=== PATIENT | male | born 1995 | race Caucasian/White ===

== ENCOUNTER 2017-08-27 07:17 | Emergency (ER) | payer BC ==
[2017-08-27 08:16] LABS: #Eosinphils 0.1 thou/uL (0.0-0.7); #Lymphocytes 1.3 thou/uL (1.20-3.40); #Monocytes 0.8 thou/uL (0.11-0.59); #Neutrophils 8.9 thou/uL (1.40-6.50); %Eosinophils 0.5 % (0.0-10.0); %Lymphocytes 11.9 % (21.0-51.0); %Monocytes 7.2 % (0.0-10.0); Hematocrit 40.9 % (42.0-52.0); Mean Platelet Volume 7.1 fL (7.4-10.4); Red Blood Cell (RBC) Count 4.78 mill/uL (4.70-6.10)
[2017-08-27] MEDS ORDERED: Ketorolac Tromethamine 30 MG/ML VIAL ONE (08:19)
[2017-08-27 08:42] LABS: ALT (SGPT) 18 U/L (8-55); AST (SGOT) 15 U/L (5-34); Alkaline Phosphatase 54 U/L (40-150); Anion Gap 14 mmol/L (10-20); BUN (Urea Nitrogen) 13 mg/dL (8.9-20.6); Bilirubin, Total 0.2 mg/dL (0.2-1.2); Calc. Creatinine Clearance 0 mL/min (70-130); Carbon Dioxide 21 mmol/L (22-29); Chloride 104 mmol/L (98-107); Estimated GFR-MDRD Greater than 90; Globulin 2.6 g/dL (2.4-3.5); Protein, Total 6.5 g/dL (6.0-8.3)
--- NOTE | 2017-08-27 09:28 | RAD ---
PA AND LATERAL CHEST XRAY: DATE: 08/27/17. HISTORY: Cough. FINDINGS: Cardiac silhouette and pulmonary vasculature are within normal limits. The lungs are clear. Osseous structures are intact. IMPRESSION: No acute cardiopulmonary process. POS: [facility]
== END 2017-08-27 09:45 | disposition home or self-care (01) ==
LOC: ERS 07:17
DX: B34.9 Viral infection, unspecified (principal); E10.9 Type 1 diabetes mellitus without complications; F41.9 Anxiety disorder, unspecified; F32.9 Major depressive disorder, single episode, unspecified; Z79.899 Other long term (current) drug therapy
CPT/HCPCS: 36415; 71020; 80053; 85025; 96361; 96374; J1885

== ENCOUNTER 2018-10-19 08:46 | Emergency (ER) | payer BC ==
--- NOTE | 2018-10-19 09:39 | RAD ---
RIGHT HAND 3 VIEWS: HISTORY: Fall. Pain. FINDINGS: Comminuted and slightly displaced fracture involving the proximal aspect of the 1st metacarpal. Asso ciated soft tissue swelling. Probable remote injury involving the distal 5th metacarpal. Limited evaluation of the base of the 3rd metacarpal. Correlate for point tenderness in this region. IMPRESSION: 1. Acute fracture involving the 1st metacarpal. 2. Indeterminate irregularity at the base of the 3rd metacarpal. Correlate for point tenderness. R emote injury to the 5th metacarpal is noted. POS: [facility]
[2018-10-19] MEDS ORDERED: Ibuprofen 600 MG TAB ONE (09:43)
== END 2018-10-19 10:11 | disposition home or self-care (01) ==
LOC: SCSER 08:46
DX: S62.231A Other displaced fracture of base of first metacarpal bone, right hand, initial encounter for closed fracture (principal); W18.11XA Fall from or off toilet without subsequent striking against object, initial encounter; Y92.002 Bathroom of unspecified non-institutional (private) residence as the place of occurrence of the external cause
CPT/HCPCS: 29125

== ENCOUNTER 2019-03-28 04:10 | Emergency (ER) | payer BC ==
[2019-03-28 05:43] LABS: #Lymphocytes 1.7 thou/uL (1.20-3.40); #Monocytes 0.3 thou/uL (0.11-0.59); #Neutrophils 4.5 thou/uL (1.40-6.50); %Basophils 0.7 % (0.0-1.0); %Eosinophils 0.4 % (0.0-10.0); %Lymphocytes 25.5 % (21.0-51.0); %Monocytes 4.4 % (0.0-10.0); Hemoglobin 13.9 g/dL (14.0-18.0); Mean Corpuscular HGB CONC 34.5 g/dL (32.0-36.0); Mean Corpuscular Hemoglobin 28.6 pg (27.0-31.0); Mean Corpuscular Volume 83.1 fL (78.0-98.0); Mean Platelet Volume 8.7 fL (7.4-10.4); Platelet Count 263 thou/uL (130-400); RBC Distribution Width 10.9 % (11.5-14.5); Red Blood Cell (RBC) Count 4.86 mill/uL (4.70-6.10); White Blood Cell (WBC) Count 6.5 thou/uL (4.8-10.8)
[2019-03-28 05:59] LABS: Bilirubin Negative (Negative); Blood, Urine Small (Negative); Clarity Clear (Clear); Glucose, Urine (Dipstick) 500 mg/dL (Negative); Leukocyte Negative (Negative); Nitrite Negative (Negative); Protein, Urine (Dipstick) Negative (Neg-Trace); Specific Gravity, Urine 1.015 (1.002-1.036); Urobilinogen 0.2 mg/dL (0.2-1.0)
[2019-03-28 06:00] LABS: Bacteria/HPF None Seen HPF (None Seen); Hyaline Casts/LPF NONE SEEN LPF (0-3 Hyaline); Squamous Epithelial None Seen HPF (0-3); WBC/HPF 0-3 HPF (0-3); Yeast-All Forms None Seen HPF (None Seen)
[2019-03-28 06:01] LABS: Medtox Reader # READER 4
[2019-03-28 06:02] LABS: Acetaminophen Less than 6.0 mcg/mL (10.0-30.0); Alcohol 53 mg/dL (Less than 10); Salicylate Less than 8.0 mg/dL (15.0-30.0)
[2019-03-28 06:02] LABS: Amphetamine Detected (NotDetected); Barbiturates Screen Not Detected (NotDetected); Benzodiazepine Screen Not Detected (NotDetected); Cocaine Metabolite Screen Detected (NotDetected); Medtox Control Line Valid? VALID (VALID); Methadone Not Detected (NotDetected); Methamphetamine Not Detected (NotDetected); Opiate Screen Not Detected (NotDetected); Oxycodone Screen Not Detected (NotDetected); Phencyclidine (PCP) Not Detected (NotDetected); THC/Cannabinoid Screen Not Detected (NotDetected); Tricyclic Screen Not Detected (NotDetected)
[2019-03-28 06:07] LABS: ALT (SGPT) 19 U/L (8-55); AST (SGOT) 17 U/L (5-34); Albumin 4.6 g/dL (3.5-5.0); Alcohol 54 mg/dL (Less than 10); Alkaline Phosphatase 74 U/L (40-150); Anion Gap 16 mmol/L (10-20); BUN (Urea Nitrogen) 10 mg/dL (8.9-20.6); Bilirubin, Total 0.3 mg/dL (0.2-1.2); CK (CPK) 216 U/L (30-200); Calc. Creatinine Clearance 0 mL/min (70-130); Calcium 9.7 mg/dL (7.8-10.44); Carbon Dioxide 23 mmol/L (22-29); Chloride 101 mmol/L (98-107); Estimated GFR-MDRD 47; Globulin 2.8 g/dL (2.4-3.5); Glucose 513 mg/dL (70-105); Potassium 4.3 mmol/L (3.5-5.1); Protein, Total 7.4 g/dL (6.0-8.3); Sodium 136 mmol/L (136-145)
[2019-03-28] MEDS ORDERED: Lorazepam 1 MG TAB ONE (06:10)
--- NOTE | 2019-03-29 09:36 | EKG ---
Test Reason : Blood Pressure : / mmHG Vent. Rate : 122 BPM Atrial Rate : 122 BPM P-R Int : 146 ms QRS Dur : 082 ms QT Int : 328 ms P-R-T Axes : 068 074 058 degrees QTc Int : 467 ms Sinus tachycardia Cannot rule out Anterior infarct , age undetermined Abnormal ECG Confirmed by SASHA HARVEY D.O. ([id number]), manuscript editor [facility] TOLEDO ([id number]) on 03/29/2019 9:36:08 AM Referred By: Confirmed By:SASHA HARVEY D.O.
== END 2019-03-28 08:15 | disposition home or self-care (01) ==
LOC: ERS 04:10
DX: T40.5X1A Poisoning by cocaine, accidental (unintentional), initial encounter (principal); F41.0 Panic disorder [episodic paroxysmal anxiety]; F41.9 Anxiety disorder, unspecified; F32.9 Major depressive disorder, single episode, unspecified; E10.9 Type 1 diabetes mellitus without complications; Z79.899 Other long term (current) drug therapy
CPT/HCPCS: 36416; 80053; 80306; 80307; 81003; 81015; 82550; 84443; 85025; 93005; 96360

== ENCOUNTER 2019-05-04 11:12 | Emergency (ER) | payer BC ==
[2019-05-04] MEDS ORDERED: Ondansetron PF 4 MG/2 ML Vial ONE (11:42)
[2019-05-04] MEDS ORDERED: Morphine 4 MG/ML VIAL ONE (11:45)
[2019-05-04 11:47] LABS: #Basophils 0.1 thou/uL (0.0-0.2); #Eosinphils 0.1 thou/uL (0.0-0.7); #Monocytes 1.2 thou/uL (0.11-0.59); #Neutrophils 11.4 thou/uL (1.40-6.50); %Basophils 0.8 % (0.0-1.0); %Eosinophils 0.7 % (0.0-10.0); %Lymphocytes 23.5 % (21.0-51.0); %Monocytes 6.9 % (0.0-10.0); Hemoglobin 15.5 g/dL (14.0-18.0); Mean Corpuscular HGB CONC 32.9 g/dL (32.0-36.0); Mean Corpuscular Hemoglobin 27.5 pg (27.0-31.0); Mean Corpuscular Volume 83.5 fL (78.0-98.0); Mean Platelet Volume 8.3 fL (7.4-10.4); Platelet Count 472 thou/uL (130-400); RBC Distribution Width 11.8 % (11.5-14.5); Red Blood Cell (RBC) Count 5.63 mill/uL (4.70-6.10); White Blood Cell (WBC) Count 16.8 thou/uL (4.8-10.8)
[2019-05-04 12:11] LABS: ALT (SGPT) 32 U/L (8-55); AST (SGOT) 26 U/L (5-34); Acetaminophen Less than 6.0 mcg/mL (10.0-30.0); Alcohol Less than 10 mg/dL (Less than 10); Alkaline Phosphatase 112 U/L (40-150); Anion Gap 29 mmol/L (10-20); BUN (Urea Nitrogen) 24 mg/dL (8.9-20.6); Bilirubin, Total 0.4 mg/dL (0.2-1.2); CK (CPK) 495 U/L (30-200); Calc. Creatinine Clearance 0 mL/min (70-130); Carbon Dioxide 22 mmol/L (22-29); Chloride 92 mmol/L (98-107); Estimated GFR-MDRD 28; Globulin 4.1 g/dL (2.4-3.5); Glucose 159 mg/dL (70-105); Magnesium 2.8 mg/dL (1.6-2.6); Potassium 3.7 mmol/L (3.5-5.1); Protein, Total 10.1 g/dL (6.0-8.3); Salicylate Less than 8.0 mg/dL (15.0-30.0); Sodium 139 mmol/L (136-145)
[2019-05-04 12:13] LABS: Calcium 12.6 mg/dL (7.8-10.44)
[2019-05-04 12:48] LABS: Bacteria/HPF None Seen HPF (None Seen); Bilirubin Negative (Negative); Blood, Urine 2+ (Negative); Clarity Clear (Clear); Glucose, Urine (Dipstick) Greater than 1000 mg/dL (Negative); Leukocyte Negative Leu/uL (Negative); Nitrite Negative (Negative); Protein, Urine (Dipstick) 100 mg/dL (Neg-Trace); Squamous Epithelial None Seen HPF (0-3); Urobilinogen Normal mg/dL (Less than 2); WBC/HPF 0-3 HPF (0-3)
[2019-05-04 12:52] LABS: Cocaine Metabolite Screen Detected (NotDetected); Medtox Reader # READER 1; Methamphetamine Not Detected (NotDetected); Phencyclidine (PCP) Not Detected (NotDetected); THC/Cannabinoid Screen Not Detected (NotDetected)
[2019-05-04 12:53] LABS: Amphetamine Not Detected (NotDetected); Barbiturates Screen Not Detected (NotDetected); Benzodiazepine Screen Not Detected (NotDetected); Medtox Control Line Valid? VALID (VALID); Methadone Not Detected (NotDetected); Opiate Screen Detected (NotDetected); Oxycodone Screen Not Detected (NotDetected); Tricyclic Screen Detected (NotDetected)
[2019-05-04 15:37] LABS: ALT (SGPT) 20 U/L (8-55); AST (SGOT) 19 U/L (5-34); Albumin 4.1 g/dL (3.5-5.0); Alkaline Phosphatase 77 U/L (40-150); Anion Gap 12 mmol/L (10-20); BUN (Urea Nitrogen) 20 mg/dL (8.9-20.6); Bilirubin, Total 0.3 mg/dL (0.2-1.2); Calc. Creatinine Clearance 0 mL/min (70-130); Calcium 9.1 mg/dL (7.8-10.44); Carbon Dioxide 27 mmol/L (22-29); Chloride 101 mmol/L (98-107); Estimated GFR-MDRD 49; Globulin 2.7 g/dL (2.4-3.5); Glucose 127 mg/dL (70-105); Potassium 3.8 mmol/L (3.5-5.1); Protein, Total 6.8 g/dL (6.0-8.3); Sodium 136 mmol/L (136-145)
== END 2019-05-04 15:50 | disposition home or self-care (01) ==
LOC: ERS 11:12
DX: E86.0 Dehydration (principal); F14.10 Cocaine abuse, uncomplicated; E10.9 Type 1 diabetes mellitus without complications; F41.9 Anxiety disorder, unspecified; F32.9 Major depressive disorder, single episode, unspecified; Z79.4 Long term (current) use of insulin; Z79.899 Other long term (current) drug therapy
CPT/HCPCS: 36415; 36416; 80053; 80306; 80307; 81003; 81015; 82010; 82550; 83605; 83735; 84443; 84484; 85025; 93005; 96361; 96374; 96375; J2270; J2405

== ENCOUNTER 2019-11-28 14:31 | Outpatient (CLI) | payer BC ==
--- NOTE | 2019-11-28 15:08 | RAD ---
CHEST TWO VIEWS: 11/28/19 INDICATION: Productive cough. COMPARISON: Prior exam dated 08/27/17. FINDINGS: The lungs are clear. Heart size is normal. No acute osseous abnormality is evident. IMPRESSION: No acute cardiopulmonary abnormality. POS: [facility]
== END 2019-11-28 14:32 | disposition home or self-care (01) ==
LOC: SCSRAD 14:31
PROVIDERS: ATTEND Nurse Practitioner Family
DX: J40 Bronchitis, not specified as acute or chronic (principal)
CPT/HCPCS: 71046

== ENCOUNTER 2022-01-31 08:32 | Day surgery (SDC) | payer SELFPAY ==
[2022-01-31] MEDS ORDERED: Bupivacaine 0.25% 10 ML VIAL ONE (09:02)
[2022-01-31] MEDS ORDERED: Lidocaine 1% w/Epinephrine 1:100K 20 ML VIAL ONE (09:02)
[2022-01-31] MEDS ORDERED: Lidocaine 2% Jelly 5 ML TUBE ONE (09:22)
[2022-01-31] MEDS ORDERED: fentaNYL Citrate/PF 100 MCG/2 ML SYRINGE ONE (09:22)
[2022-01-31] MEDS ORDERED: Ketorolac Tromethamine 30 MG/ML VIAL ONE (09:23)
[2022-01-31] MEDS ORDERED: Sodium Chloride 0.9% 100 ML ONE (09:28)
[2022-01-31] MEDS ORDERED: Piperacillin/Tazobactam 3.375 GM VIAL ONE (09:28)
[2022-01-31] MEDS ORDERED: Glycopyrrolate 0.2 MG/ML 5 ML SYRINGE ONE (09:43)
[2022-01-31] MEDS ORDERED: Rocuronium Bromide 10 MG/ML (10ML VIAL) ONE (09:43)
[2022-01-31] MEDS ORDERED: PHENYLEPHRINE-NS 100 MCG/ML 10 ML SYRINGE ONE (09:43)
[2022-01-31] MEDS ORDERED: Lidocaine 1% PF 5 ML VIAL ONE (09:43)
[2022-01-31] MEDS ORDERED: Ondansetron PF 4 MG/2 ML Vial ONE (09:43)
[2022-01-31] MEDS ORDERED: Succinylcholine 200 MG/10 ml SYRINGE FS ONE (09:43)
[2022-01-31] MEDS ORDERED: PROPOFOL 200 MG/20 ML VIAL ONE (09:43)
[2022-01-31] MEDS ORDERED: Fentanyl 100 MCG/2 ML VIAL ONE (10:48)
[2022-01-31] MEDS ORDERED: HYDROcodone/Acetaminophen 5/325 mg Tablet ONE (11:35)
== END 2022-01-31 12:11 | disposition home or self-care (01) ==
LOC: SDC 08:32
PROVIDERS: ATTEND Specialist
PROC: 0DTJ4ZZ Resection of Appendix, Percutaneous Endoscopic Approach (ICD-10-PCS; principal; 2022-01-31)
DX: K35.80 Unspecified acute appendicitis (principal); E10.9 Type 1 diabetes mellitus without complications
CPT/HCPCS: 36416; 88304; A4649; J1885; J2405; J2543; J2704; J3010; J3490; S0020

== ENCOUNTER 2022-05-15 21:30 | Emergency (ER) | payer OTHER, SELFPAY ==
[~2022-05-15 21:30] MED LIST: Iopamidol-370 76% 500 ML 1 ML ONE
[2022-05-15] MEDS ORDERED: Ketamine 50 MG/ML (10ML VIAL) ONE (21:38)
[2022-05-15 21:55] LABS: #Basophils 0.1 thou/uL (0.0-0.2); #Eosinphils 0.1 thou/uL (0.0-0.7); #Lymphocytes 3.6 thou/uL (1.20-3.40); #Monocytes 0.6 thou/uL (0.11-0.59); #Neutrophils 8.4 thou/uL (1.40-6.50); %Eosinophils 0.9 % (0.0-10.0); %Lymphocytes 28.1 % (21.0-51.0); %Monocytes 4.5 % (0.0-10.0); %Neutrophils 65.5 % (42.0-75.0); Hemoglobin 14.9 g/dL (14.0-18.0); Mean Corpuscular HGB CONC 33.1 g/dL (32.0-36.0); Mean Corpuscular Hemoglobin 28.7 pg (27.0-31.0); Mean Corpuscular Volume 86.8 fL (78.0-98.0); Mean Platelet Volume 8.4 fL (7.4-10.4); Platelet Count 321 thou/uL (130-400); RBC Distribution Width 11.9 % (11.5-14.5); Red Blood Cell (RBC) Count 5.17 mill/uL (4.70-6.10); White Blood Cell (WBC) Count 12.8 thou/uL (4.8-10.8)
[2022-05-15] MEDS ORDERED: Propofol 1,000 MG/100 ML VIAL IV ONE (22:00)
[2022-05-15 22:15] LABS: Acetaminophen Less than 10.0 mcg/mL (10.0-30.0); Alcohol 32 mg/dL (Less than 10); Salicylate Less than 8.0 mg/dL (15.0-30.0)
[2022-05-15 22:16] LABS: ALT (SGPT) 81 U/L (8-55); AST (SGOT) 131 U/L (5-34); Albumin 4.4 g/dL (3.5-5.0); Alkaline Phosphatase 58 U/L (40-110); Anion Gap 18 mmol/L (10-20); BUN (Urea Nitrogen) 15 mg/dL (8.9-20.6); Bilirubin, Total 0.5 mg/dL (0.2-1.2); Calc. Creatinine Clearance 0 mL/min (70-130); Calcium 9.5 mg/dL (7.8-10.44); Carbon Dioxide 22 mmol/L (22-29); Chloride 107 mmol/L (98-107); Estimated GFR 64; Globulin 2.6 g/dL (2.4-3.5); Glucose 139 mg/dL (70-105); Sodium 143 mmol/L (136-145)
[2022-05-15] MEDS ORDERED: Fentanyl 100 MCG/2 ML VIAL ONE (22:25)
[2022-05-15] MEDS ORDERED: Fentanyl CADD 100 ML IV SCH (22:30)
[2022-05-15] MEDS ORDERED: Midazolam HCl 2 mg/2 ml Vial ONE (23:06)
[2022-05-16] MEDS ORDERED: Propofol 1,000 MG/100 ML VIAL IV ONE (00:20)
== END 2022-05-16 00:28 | disposition short-term general hospital (02) ==
LOC: ERS 21:30
DX: S32.119A Unspecified Zone I fracture of sacrum, initial encounter for closed fracture (principal); S32.511A Fracture of superior rim of right pubis, initial encounter for closed fracture; S30.811A Abrasion of abdominal wall, initial encounter; V43.52XA Car driver injured in collision with other type car in traffic accident, initial encounter; E10.9 Type 1 diabetes mellitus without complications
CPT/HCPCS: 27197; 31500; 51610; 51702; 70450; 71045; 71260; 72125; 72170; 74177; 74450; 80053; 80307; 85025; 96374; 96375; J2250; J2704; J3010; Q9967